=== PATIENT | male | born 1945 | race Caucasian/White ===

== ENCOUNTER 2016-10-25 07:42 | Inpatient (IN) | payer OTHER ==
[~2016-10-25] VITALS: Ht 170.2 cm; Wt 99.0 kg
[2016-10-25 08:40] LABS: EOSINOPHIL (%) 1.1 % (0-5); EOSINOPHIL COUNT 0.1 K/uL (0-0.3); HEMATOCRIT 38.9 % (38.0-50.0); IMMATURE GRANULOCYTE (%) 0.6 % (0.0-0.7); IMMATURE GRANULOCYTE COUNT 0.1 K/uL; INSTRUMENT ABS NEUTROPHIL CT 7.8 K/uL; LYMPHOCYTE COUNT 0.7 K/uL (1.0-2.8); MCHC 32.1 G/DL (30.0-36.0); MCV 93.3 FL (86-99); MEAN PLAT.VOLUME 11.2 uM^3 (9.0-12.4); MONOCYTE (%) 3.5 % (3-12); MONOCYTE COUNT 0.3 K/uL (0-0.8); NEUTROPHIL (%) 86.8 % (45-76); NEUTROPHIL COUNT 7.8 K/uL (1.8-6.4); PLATELET COUNT 120 K/uL (156-360); RBC DIS.WIDTH-CV 13.1 % (11.8-14.6); RBC DIS.WIDTH-SD 44.6 % (39-53); RED BLOOD COUNT 4.17 M/uL (4.00-5.50)
[2016-10-25] MEDS ORDERED: TYLENOL REGULA325 MG PO (10:07)
[2016-10-25 10:58] LABS: ANION GAP 9 MEQ/L (2-14); CHLORIDE 106 MEQ/L (99-109); POTASSIUM 4.2 MEQ/L (3.7-5.4); SAMPLE HEMOLYSIS CHECK 0; SAMPLE ICTERIC CHECK 0; SAMPLE LIPEMIA CHECK 0; SODIUM 141 MEQ/L (136-147)
[2016-10-25 11:04] LABS: GFR ESTIMATE (CALCULATED) 53 mL/min/; GLUCOSE 128 mg/dL (70-99); UREA NITROGEN (BUN) 30 mg/dL (9-23)
[2016-10-25 12:55] LABS: TROP-I INTERPRETATION NEGATIVE; TROPONIN-I 0.15 ng/mL (0.0-0.30)
[2016-10-25 13:02] LABS: HDL CHOLESTEROL 31 MG/DL (Desirable>=40); LDL CHOLESTEROL 97 mg/dL (Desirable<100); NON-HDL CHOLESTEROL 115 mg/dL (Desirable<160); TOTAL CHOLESTEROL 146 mg/dL (Desirable<200); TRIGLYCERIDES 91 MG/DL (Normal: <150)
[2016-10-25 13:55] VITALS: BP 139/75
[2016-10-25 15:20] VITALS: BP 140/71
[2016-10-25 18:59] LABS: TROP-I INTERPRETATION NEGATIVE; TROPONIN-I 0.14 ng/mL (0.0-0.30)
[2016-10-25 19:24] VITALS: BP 143/81
[2016-10-25 23:52] VITALS: BP 167/77
[2016-10-26 01:36] LABS: TROP-I INTERPRETATION NEGATIVE; TROPONIN-I 0.13 ng/mL (0.0-0.30)
[2016-10-26 03:48] VITALS: BP 140/78
[2016-10-26 07:12] LABS: Estimated Average Glucose 134 mg/dL (70-123); HEMOGLOBIN A1c (GLYCOHEMOGLOB) 6.3 % HGB (Below 5.7)
[2016-10-26 07:15] LABS: ANION GAP 11 MEQ/L (2-14); CHLORIDE 108 MEQ/L (99-109); GFR ESTIMATE (CALCULATED) > 59 mL/min/; GLUCOSE 120 mg/dL (70-99); POTASSIUM 4.7 MEQ/L (3.7-5.4); SAMPLE HEMOLYSIS CHECK 0; SAMPLE ICTERIC CHECK 0; SAMPLE LIPEMIA CHECK 0; SODIUM 142 MEQ/L (136-147); UREA NITROGEN (BUN) 26 mg/dL (9-23)
[2016-10-26 07:53] VITALS: BP 139/79
[2016-10-26 16:39] LABS: TROP-I INTERPRETATION NEGATIVE; TROPONIN-I 0.11 ng/mL (0.0-0.30)
[2016-10-26 17:09] VITALS: BP 124/65
[2016-10-26 19:23] VITALS: BP 109/55
[2016-10-26 21:46] LABS: TROP-I INTERPRETATION NEGATIVE
[2016-10-26 23:16] VITALS: BP 124/60
[2016-10-27 02:30] LABS: HEMATOCRIT 33.3 % (38.0-50.0); MCH 29.6 PG (29.0-34.0); MCHC 30.9 G/DL (30.0-36.0); MCV 95.7 FL (86-99); MEAN PLAT.VOLUME 11.1 uM^3 (9.0-12.4); PLATELET COUNT 89 K/uL (156-360); RBC DIS.WIDTH-CV 13.2 % (11.8-14.6); RBC DIS.WIDTH-SD 46.1 % (39-53); RED BLOOD COUNT 3.48 M/uL (4.00-5.50); WHITE BLOOD COUNT 11.4 K/uL (4.1-10.2)
[2016-10-27 02:48] LABS: TROP-I INTERPRETATION NEGATIVE
[2016-10-27 02:48] LABS: CHLORIDE 111 mEq/L (99-109); POTASSIUM 4.6 mEq/L (3.7-5.4); SODIUM 141 mEq/L (136-147)
[2016-10-27 02:49] LABS: GLUCOSE 138 mg/dL (70-99)
[2016-10-27 02:51] LABS: ANION GAP 11 MEQ/L (2-14)
[2016-10-27 02:53] LABS: GFR ESTIMATE (CALCULATED) > 59 mL/min/
[2016-10-27 02:54] LABS: UREA NITROGEN (BUN) 29 mg/dL (9-23)
[2016-10-27 03:48] VITALS: BP 136/69
[2016-10-27 07:00] VITALS: BP 124/70
[2016-10-27 12:02] VITALS: BP 118/68
[2016-10-27 15:20] VITALS: BP 123/60
[2016-10-27 19:36] VITALS: BP 120/63
[2016-10-27 23:03] VITALS: BP 125/66
[2016-10-28 05:16] VITALS: BP 134/72
[2016-10-28 08:15] VITALS: BP 128/63
[2016-10-28 11:32] VITALS: BP 121/56
[2016-10-28 12:43] LABS: HEMATOCRIT 28.6 % (38.0-50.0); MCHC 31.8 G/DL (30.0-36.0); MCV 94.4 FL (86-99); MEAN PLAT.VOLUME 11.9 uM^3 (9.0-12.4); PLATELET COUNT 105 K/uL (156-360); RBC DIS.WIDTH-CV 13.2 % (11.8-14.6); RBC DIS.WIDTH-SD 45.8 % (39-53); RED BLOOD COUNT 3.03 M/uL (4.00-5.50); WHITE BLOOD COUNT 12.6 K/uL (4.1-10.2)
[2016-10-28 16:02] VITALS: BP 127/65
[2016-10-28 19:28] VITALS: BP 130/64
[2016-10-28 23:10] VITALS: BP 125/67
[2016-10-29 06:27] LABS: MCH 31.1 PG (29.0-34.0); MCHC 32.5 G/DL (30.0-36.0); MCV 95.6 FL (86-99); MEAN PLAT.VOLUME 12.4 uM^3 (9.0-12.4); PLATELET COUNT 94 K/uL (156-360); RBC DIS.WIDTH-CV 13.3 % (11.8-14.6); RBC DIS.WIDTH-SD 47.7 % (39-53); RED BLOOD COUNT 2.93 M/uL (4.00-5.50); WHITE BLOOD COUNT 10.5 K/uL (4.1-10.2)
[2016-10-29 06:54] LABS: ANION GAP 12 MEQ/L (2-14); CHLORIDE 106 MEQ/L (99-109); GFR ESTIMATE (CALCULATED) 58 mL/min/; GLUCOSE 107 mg/dL (70-99); POTASSIUM 4.4 MEQ/L (3.7-5.4); SAMPLE HEMOLYSIS CHECK 1; SAMPLE ICTERIC CHECK 0; SAMPLE LIPEMIA CHECK 0; SODIUM 141 MEQ/L (136-147); UREA NITROGEN (BUN) 30 mg/dL (9-23)
[2016-10-29 08:07] VITALS: BP 135/67
[2016-10-29 10:05] LABS: MAGNESIUM 2.4 mg/dl (1.3-2.7)
[2016-10-29 11:56] VITALS: BP 124/59
[2016-10-29 16:00] VITALS: BP 130/58
[2016-10-29 20:48] VITALS: BP 141/65
[2016-10-29 23:56] VITALS: BP 130/64
[2016-10-30 04:36] VITALS: BP 130/69
[2016-10-30 07:10] LABS: EOSINOPHIL (%) 3.2 % (0-5); EOSINOPHIL COUNT 0.3 K/uL (0-0.3); HEMATOCRIT 27.1 % (38.0-50.0); IMMATURE GRANULOCYTE (%) 0.6 % (0.0-0.7); IMMATURE GRANULOCYTE COUNT 0.1 K/uL; INSTRUMENT ABS NEUTROPHIL CT 6.7 K/uL; LYMPHOCYTE COUNT 1.2 K/uL (1.0-2.8); MCH 29.9 PG (29.0-34.0); MCHC 31.7 G/DL (30.0-36.0); MCV 94.1 FL (86-99); MEAN PLAT.VOLUME 11.7 uM^3 (9.0-12.4); MONOCYTE (%) 9.2 % (3-12); MONOCYTE COUNT 0.8 K/uL (0-0.8); NEUTROPHIL (%) 73.7 % (45-76); NEUTROPHIL COUNT 6.7 K/uL (1.8-6.4); PLATELET COUNT 116 K/uL (156-360); RBC DIS.WIDTH-CV 13.2 % (11.8-14.6); RBC DIS.WIDTH-SD 45.7 % (39-53); RED BLOOD COUNT 2.88 M/uL (4.00-5.50); WHITE BLOOD COUNT 9.1 K/uL (4.1-10.2)
[2016-10-30 07:28] LABS: ANION GAP 8 MEQ/L (2-14); CHLORIDE 107 MEQ/L (99-109); GFR ESTIMATE (CALCULATED) > 59 mL/min/; GLUCOSE 103 mg/dL (70-99); POTASSIUM 4.1 MEQ/L (3.7-5.4); SAMPLE HEMOLYSIS CHECK 0; SAMPLE ICTERIC CHECK 0; SAMPLE LIPEMIA CHECK 0; SODIUM 140 MEQ/L (136-147); UREA NITROGEN (BUN) 27 mg/dL (9-23)
[2016-10-30 08:14] VITALS: BP 134/71
[2016-10-30 11:42] VITALS: BP 147/64
[2016-10-30] MEDS ORDERED: LOVENOX40 MG/0.4 SC (11:46)
[2016-10-30] MEDS ORDERED: METOPROLOL SUCC50 MG PO (11:46)
[2016-10-30] MEDS ORDERED: Milk Of Magnesia,MOM PO (11:47)
[2016-10-30] MEDS ORDERED: HYDROCODON-ACE1 EAC7 PO (11:47)
[2016-10-30] MEDS ORDERED: DOCUSATE SODIU100 MG PO (11:47)
[2016-10-30] MEDS ORDERED: KETOROLAC TROME10 MG PO (11:47)
[2016-10-30] MEDS ORDERED: BISAC-EVAC10 MG PR (11:47)
== END 2016-10-30 12:49 | DRG 470 ==
LOC: EME 07:42 → ENRESERV 12:07 → EDOF 12:10 → 3EAST 12:10 → ENRESERV 12:15 → 3EAST 13:26
PROVIDERS: Emergency Medicine; Hospitalist; Internal Medicine; Internal Medicine Cardiovascular Disease; Nurse Practitioner Adult Health; Orthopaedic Surgery
PROC: 0SRS01A Replacement of Left Hip Joint, Femoral Surface with Metal Synthetic Substitute, Uncemented, Open Approach (ICD-10-PCS; principal; 2016-10-26)
DX: S72.042A Displaced fracture of base of neck of left femur, initial encounter for closed fracture (principal); W18.30XA Fall on same level, unspecified, initial encounter; I47.2 Ventricular tachycardia; I35.0 Nonrheumatic aortic (valve) stenosis; D62 Acute posthemorrhagic anemia; E66.9 Obesity, unspecified; Z68.34 Body mass index [BMI] 34.0-34.9, adult; Z87.891 Personal history of nicotine dependence
CPT/HCPCS: 70450; 71010; 73502; 80048; 80061; 81003; 82272; 83036; 83735; 83880; 84100; 84484; 85014; 85018; 85025; 85027; 86850; 86900; 86901; 86920; 88300; 93005; 93306; 94799; 97530 GO; 97530 GP; 99281; 99285; J0330; J0690; J1170; J1644; J1650; J2250; J2270; J2405; J2710; J3010; J7030

== ENCOUNTER 2016-10-29 10:59 | Inpatient (IN) | payer OTHER ==
[~2016-10-29] VITALS: Ht 172.7 cm; Wt 93.4 kg
[~2016-10-29 10:59] MED LIST: TYLENOL REGULA325 MG PO
[2016-10-30] MEDS ORDERED: LOVENOX40 MG/0.4 SC (11:46)
[2016-10-30] MEDS ORDERED: METOPROLOL SUCC50 MG PO (11:46)
[2016-10-30] MEDS ORDERED: HYDROCODON-ACE1 EAC7 PO (11:47)
[2016-10-30] MEDS ORDERED: DOCUSATE SODIU100 MG PO (11:47)
[2016-10-30] MEDS ORDERED: Milk Of Magnesia,MOM PO (11:47)
[2016-10-30] MEDS ORDERED: KETOROLAC TROME10 MG PO (11:47)
[2016-10-30] MEDS ORDERED: BISAC-EVAC10 MG PR (11:47)
[2016-10-30 13:18] VITALS: BP 135/70
[2016-10-30 15:29] VITALS: BP 115/60
[2016-10-31 04:56] VITALS: BP 124/70
[2016-10-31 07:04] LABS: HEMATOCRIT 26.4 % (38.0-50.0); MCH 29.7 PG (29.0-34.0); MCHC 31.4 G/DL (30.0-36.0); MCV 94.6 FL (86-99); MEAN PLAT.VOLUME 11.5 uM^3 (9.0-12.4); PLATELET COUNT 121 K/uL (156-360); RBC DIS.WIDTH-CV 13.2 % (11.8-14.6); RBC DIS.WIDTH-SD 45.9 % (39-53); RED BLOOD COUNT 2.79 M/uL (4.00-5.50); WHITE BLOOD COUNT 8.2 K/uL (4.1-10.2)
[2016-10-31 07:28] LABS: ALKALINE PHOSPHATASE 81 IU/L (3-129); ANION GAP 10 MEQ/L (2-14); CHLORIDE 108 MEQ/L (99-109); GFR ESTIMATE (CALCULATED) > 59 mL/min/; GLUCOSE 106 mg/dL (70-99); POTASSIUM 4.1 MEQ/L (3.7-5.4); SAMPLE HEMOLYSIS CHECK 0; SAMPLE ICTERIC CHECK 0; SAMPLE LIPEMIA CHECK 0; SODIUM 143 MEQ/L (136-147); TOTAL BILIRUBIN 0.5 MG/DL (0.0-1.0); UREA NITROGEN (BUN) 26 mg/dL (9-23)
[2016-10-31 15:08] VITALS: BP 145/67
[2016-11-01 05:22] VITALS: BP 112/67
[2016-11-01 15:06] VITALS: BP 131/60
[2016-11-02 05:35] VITALS: BP 127/58
[2016-11-02 15:02] VITALS: BP 118/63
[2016-11-03 05:27] VITALS: BP 138/66
[2016-11-03 15:32] VITALS: BP 103/65
[2016-11-04 05:48] VITALS: BP 130/61
[2016-11-04 15:19] VITALS: BP 109/55
[2016-11-05 04:03] VITALS: BP 129/66
[2016-11-05 15:14] VITALS: BP 118/58
[2016-11-06 04:52] VITALS: BP 127/54
[2016-11-06 16:20] VITALS: BP 118/56
[2016-11-07 06:06] VITALS: BP 131/61
[2016-11-07 15:29] VITALS: BP 119/57
[2016-11-08 05:44] VITALS: BP 130/63
[2016-11-08 15:40] VITALS: BP 125/59
[2016-11-09 05:13] VITALS: BP 136/63
[2016-11-09 15:11] VITALS: BP 105/57
[2016-11-10 06:09] VITALS: BP 135/61
[2016-11-10 06:53] LABS: HEMATOCRIT 27.1 % (38.0-50.0); MCH 30.4 PG (29.0-34.0); MCHC 30.3 G/DL (30.0-36.0); MEAN PLAT.VOLUME 11.2 uM^3 (9.0-12.4); RBC DIS.WIDTH-CV 14.9 % (11.8-14.6); RBC DIS.WIDTH-SD 52.6 % (39-53); WHITE BLOOD COUNT 7.3 K/uL (4.1-10.2)
[2016-11-10 06:54] LABS: MCV 100.4 FL (86-99); PLATELET COUNT 176 K/uL (156-360)
[2016-11-10 07:07] LABS: ALKALINE PHOSPHATASE 124 IU/L (3-129); ANION GAP 8 MEQ/L (2-14); CHLORIDE 106 MEQ/L (99-109); GFR ESTIMATE (CALCULATED) 58 mL/min/; GLUCOSE 98 mg/dL (70-99); POTASSIUM 4.5 MEQ/L (3.7-5.4); SAMPLE HEMOLYSIS CHECK 0; SAMPLE ICTERIC CHECK 0; SAMPLE LIPEMIA CHECK 0; SODIUM 143 MEQ/L (136-147); TOTAL BILIRUBIN 0.4 MG/DL (0.0-1.0); UREA NITROGEN (BUN) 20 mg/dL (9-23)
[2016-11-10 15:45] VITALS: BP 126/63
[2016-11-11 05:22] VITALS: BP 106/56
[2016-11-11] MEDS ORDERED: THERAGRAN1 TABLET PO (08:41)
[2016-11-11] MEDS ORDERED: LOVENOX40 MG/0.4 SC (08:41)
[2016-11-11] MEDS ORDERED: DOCUSATE SODIU100 MG PO (08:41)
[2016-11-11] MEDS ORDERED: METOPROLOL SUCC50 MG PO (08:41)
[2016-11-11] MEDS ORDERED: ASCORBIC ACID500 M3 PO (08:41)
[2016-11-11] MEDS ORDERED: HYDROCODON-ACE1 EAC7 PO (08:41)
[2016-11-11] MEDS ORDERED: FOLIC ACID1 MG PO (08:41)
[2016-11-11] MEDS ORDERED: XARELTO10 MG PO (08:42)
== END 2016-11-11 12:54 | disposition home health service (06) | DRG 560 ==
LOC: 3WEST 10:59 → ENPENDDIS 11-11 → 3WEST 11-11 12:54
PROVIDERS: Physical Medicine & Rehabilitation Pain Medicine
PROC: F07M0ZZ Range of Motion and Joint Mobility Treatment of Musculoskeletal System - Whole Body (ICD-10-PCS; principal; 2016-10-30)
DX: S72.002D Fracture of unspecified part of neck of left femur, subsequent encounter for closed fracture with routine healing (principal); H91.90 Unspecified hearing loss, unspecified ear; I27.20 Pulmonary hypertension, unspecified; Z87.891 Personal history of nicotine dependence; G89.18 Other acute postprocedural pain; R26.9 Unspecified abnormalities of gait and mobility; I47.1 Supraventricular tachycardia; E83.51 Hypocalcemia; D72.829 Elevated white blood cell count, unspecified; D69.6 Thrombocytopenia, unspecified; D62 Acute posthemorrhagic anemia; L97.929 Non-pressure chronic ulcer of unspecified part of left lower leg with unspecified severity; I08.1 Rheumatic disorders of both mitral and tricuspid valves
CPT/HCPCS: 73502; 80053; 85027; 93971; 97110 GO; 97530 GP; J1650

== ENCOUNTER 2017-02-08 12:26 | Inpatient (IN) | payer OTHER ==
[~2017-02-08] VITALS: Ht 170.2 cm; Wt 81.2 kg
[~2017-02-08 12:26] MED LIST changes: +ASCORBIC ACID500 M3 PO; +BISAC-EVAC10 MG PR; +DOCUSATE SODIU100 MG PO; +FOLIC ACID1 MG PO; +HYDROCODON-ACE1 EAC7 PO; +KETOROLAC TROME10 MG PO; +LOVENOX40 MG/0.4 SC; +METOPROLOL SUCC50 MG PO; +Milk Of Magnesia,MOM PO; +THERAGRAN1 TABLET PO; +XARELTO10 MG PO
[2017-02-08 16:12] LABS: HEMATOCRIT 40.4 % (38.0-50.0); HEMOGLOBIN 12.3 G/DL (12.5-16.6); MCH 30.1 PG (29.0-34.0); MCHC 30.4 G/DL (30.0-36.0); MCV 98.8 FL (86-99); NRBC (%) 0.2 /100 WBC (0-0); PLATELET COUNT 75 K/uL (156-360); RBC DIS.WIDTH-CV 17.6 % (11.8-14.6); RBC DIS.WIDTH-SD 62.4 % (39-53); RED BLOOD COUNT 4.09 M/uL (4.00-5.50); WHITE BLOOD COUNT 11.1 K/uL (4.1-10.2)
[2017-02-08 16:25] LABS: CHLORIDE 105 mEq/L (99-109); POTASSIUM 4.9 mEq/L (3.7-5.4); SODIUM 140 mEq/L (136-147)
[2017-02-08 16:26] LABS: GLUCOSE 119 mg/dL (70-99)
[2017-02-08 16:30] LABS: CREATININE 2.3 mg/dL (0.6-1.3); GFR ESTIMATE (CALCULATED) 30 mL/min/ (58.99-99999)
[2017-02-08 16:31] LABS: UREA NITROGEN (BUN) 55 mg/dL (9-23)
[2017-02-08] MEDS ORDERED: COMPLETE MULTI1 EAC3 PO (20:53)
[2017-02-08] MEDS ORDERED: ASCORBIC ACID500 M1 PO (20:53)
[2017-02-08] MEDS ORDERED: SANTYL30 GM TP (20:54)
[2017-02-08] MEDS ORDERED: BAYER CHEWABLE81 MG PO (20:55)
[2017-02-08 22:07] LABS: ALBUMIN 2.8 g/dL (3.2-4.8)
[2017-02-08 22:12] LABS: TOTAL BILIRUBIN 0.4 mg/dL (0.0-1.0)
[2017-02-08 22:13] LABS: ALKALINE PHOSPHATASE 103 IU/L (3-129)
[2017-02-08 22:16] LABS: ALT (GPT) 16 IU/L (3-49); AST (GOT) 21 IU/L (2-34); DIRECT BILIRUBIN 0.2 mg/dL (0.0-0.3)
[2017-02-08 22:50] LABS: C-REACTIVE PROTEIN 186.8 MG/L (0-10)
[2017-02-09] VITALS (25 sets, daily range): BP systolic 94–169; BP diastolic 46–82
[2017-02-09 06:21] LABS: BASOPHIL (%) 0.2 % (0-1); EOSINOPHIL (%) 0.2 % (0-5); HEMATOCRIT 36.9 % (38.0-50.0); HEMOGLOBIN 10.8 G/DL (12.5-16.6); IMMATURE GRANULOCYTE (%) 0.9 % (0.0-0.7); LYMPHOCYTE (%) 5.6 % (15-42); LYMPHOCYTE COUNT 0.6 K/uL (1.0-2.8); MCH 29.5 PG (29.0-34.0); MCHC 29.3 G/DL (30.0-36.0); MCV 100.8 FL (86-99); MONOCYTE (%) 6.4 % (3-12); MONOCYTE COUNT 0.7 K/uL (0-0.8); NEUTROPHIL (%) 86.7 % (45-76); NEUTROPHIL COUNT 9.2 K/uL (1.8-6.4); NRBC (%) 0.2 /100 WBC (0-0); PLATELET COUNT 76 K/uL (156-360); RBC DIS.WIDTH-CV 17.7 % (11.8-14.6); RBC DIS.WIDTH-SD 65.5 % (39-53); RED BLOOD COUNT 3.66 M/uL (4.00-5.50); WHITE BLOOD COUNT 10.6 K/uL (4.1-10.2)
[2017-02-09 06:46] LABS: CHLORIDE 105 MEQ/L (99-109); CREATININE 2.4 MG/DL (0.6-1.3); GFR ESTIMATE (CALCULATED) 28 mL/min/ (58.99-99999); GLUCOSE 106 mg/dL (70-99); POTASSIUM 5.3 MEQ/L (3.7-5.4); SODIUM 140 MEQ/L (136-147); UREA NITROGEN (BUN) 57 mg/dL (9-23); VANCOMYCIN, TROUGH 13.2 MCG/ML (10-20)
[2017-02-09 10:29] LABS: BASE EXCESS -2.1 mEq/L (-3 to +3); CARBOXY HGB 4.7 % (0-5); METHEMOGLOBIN 1.6 % (0-1.5); PCO2 65 mm Hg (35-45); PO2 64 mm Hg (80-100); SITE LB; pH 7.21 (7.35-7.45)
[2017-02-09 10:30] LABS: O2 FLOW 3.5 L/MIN
[2017-02-09 10:31] LABS: COMMENTS - BLOOD GASES C+; DEVICE NC
[2017-02-09 10:32] LABS: TOTAL RESP RATE 25 resp/min
[2017-02-09 11:02] LABS: BASOPHIL (%) 0.1 % (0-1); EOSINOPHIL (%) 0.2 % (0-5); HEMATOCRIT 37.2 % (38.0-50.0); HEMOGLOBIN 10.8 G/DL (12.5-16.6); IMMATURE GRANULOCYTE (%) 0.8 % (0.0-0.7); LYMPHOCYTE (%) 3.9 % (15-42); LYMPHOCYTE COUNT 0.4 K/uL (1.0-2.8); MCH 29.6 PG (29.0-34.0); MCV 101.9 FL (86-99); MONOCYTE COUNT 0.6 K/uL (0-0.8); NEUTROPHIL COUNT 9.4 K/uL (1.8-6.4); NRBC (%) 0.2 /100 WBC (0-0); RBC DIS.WIDTH-CV 17.8 % (11.8-14.6); RBC DIS.WIDTH-SD 66.1 % (39-53); RED BLOOD COUNT 3.65 M/uL (4.00-5.50); WHITE BLOOD COUNT 10.6 K/uL (4.1-10.2)
[2017-02-09 11:10] LABS: FIBRINOGEN 265 mg/dL (150-450); INTER. NORMALIZED RATIO 1.3
[2017-02-09 11:12] LABS: PTT 26.2 SEC (25-37)
[2017-02-09 11:36] LABS: PLAT.SUFFICIENCY DECREASED; PLATELET COUNT 76 K/uL (156-360)
[2017-02-09 17:50] LABS: TYPE OF FLUID PLEURAL
[2017-02-09 18:16] LABS: APPEARANCE HAZY-YELLOW; BODY FLUID RBC'S 4000 /MM^3 (0-100); BODY FLUID WBC'S 203 /MM^3 (0-500)
[2017-02-09 19:03] LABS: BODY FLUID EOSINOPHILS 0 % (0-25); MONONUCLEAR WBC'S 78 %; POLYNUCLEAR WBC'S 22 % (0-25)
[2017-02-09 19:24] LABS: BODY FLUID GLUCOSE 130 MG/DL; BODY FLUID LDH 72 IU/L
[2017-02-09 19:35] LABS: BODY FLUID PROTEIN < 3.0 G/DL
[2017-02-09 20:48] LABS: BASE EXCESS -5.3 mEq/L (-3 to +3); BICARBONATE 26.1 mEq/L (22-26); CARBOXY HGB 2.3 % (0-5); PO2 54 mm Hg (80-100)
[2017-02-09 20:49] LABS: COMMENTS - BLOOD GASES A+C+; DEVICE NC; O2 FLOW 3 L/MIN; PCO2 88 mm Hg (35-45); SITE RR; pH 7.08 (7.35-7.45)
[2017-02-09 21:44] LABS: APPEARANCE CLOUDY ((CLEAR)); BILIRUBIN NEGATIVE; BLOOD NEGATIVE; COLOR YELLOW ((YELLOW)); GLUCOSE (STRIP) NEGATIVE; KETONES NEGATIVE; LEUKOCYTES NEGATIVE; NITRITE NEGATIVE; PROTEIN (STRIP) 100; SPECIFIC GRAVITY 1.018 (1.000-1.030)
[2017-02-09 21:51] LABS: BACTERIA RARE /HPF; EPITHELIAL CELLS RARE /HPF; HYALINE CASTS 0-5 /LPF; MUCUS TRACE /LPF; RED BLOOD CELLS 0-5 /HPF (0-5); WHITE BLOOD CELLS 0-5 /HPF (0-5)
[2017-02-09 22:48] LABS: BICARBONATE 24.6 mEq/L (22-26); CARBOXY HGB 1.7 % (0-5); COMMENTS - BLOOD GASES C+A+; DEVICE VENT; FI02 100 %; MECHANICAL RATE 22 resp/min; METHEMOGLOBIN 2.1 % (0-1.5); MODE AC; PCO2 56 mm Hg (35-45); PEEP 5 CM/H20; PO2 193 mm Hg (80-100); SITE RR; TIDAL VOLUME 450 ML; TOTAL RESP RATE 22 resp/min; pH 7.25 (7.35-7.45)
[2017-02-10] VITALS (22 sets, daily range): BP systolic 89–133; BP diastolic 41–68
[2017-02-10 01:08] LABS: BASE EXCESS -1.8 mEq/L (-3 to +3); BICARBONATE 23.1 mEq/L (22-26); CARBOXY HGB 1.5 % (0-5); COMMENTS - BLOOD GASES C+A+; DEVICE VENT; FI02 60 %; MECHANICAL RATE 22 resp/min; MODE AC; PCO2 39 mm Hg (35-45); PO2 77 mm Hg (80-100); SITE RR; TIDAL VOLUME 550 ML; TOTAL RESP RATE 22 resp/min; pH 7.38 (7.35-7.45)
[2017-02-10 01:09] LABS: PEEP 5 CM/H20
[2017-02-10 06:21] LABS: BASOPHIL (%) 0 % (0-1); EOSINOPHIL (%) 0.1 % (0-5); HEMATOCRIT 29.3 % (38.0-50.0); HEMOGLOBIN 8.9 G/DL (12.5-16.6); IMMATURE GRANULOCYTE (%) 0.9 % (0.0-0.7); LYMPHOCYTE (%) 4.5 % (15-42); LYMPHOCYTE COUNT 0.4 K/uL (1.0-2.8); MCH 29.9 PG (29.0-34.0); MCHC 30.4 G/DL (30.0-36.0); MCV 98.3 FL (86-99); MONOCYTE (%) 4.6 % (3-12); MONOCYTE COUNT 0.4 K/uL (0-0.8); NEUTROPHIL (%) 89.9 % (45-76); NRBC (%) 0.3 /100 WBC (0-0); RBC DIS.WIDTH-CV 17.3 % (11.8-14.6); RBC DIS.WIDTH-SD 61.9 % (39-53); RED BLOOD COUNT 2.98 M/uL (4.00-5.50); WHITE BLOOD COUNT 7.8 K/uL (4.1-10.2)
[2017-02-10 06:28] LABS: CHLORIDE 106 MEQ/L (99-109); GFR ESTIMATE (CALCULATED) 22 mL/min/ (58.99-99999); GLUCOSE 102 mg/dL (70-99); POTASSIUM 5.6 MEQ/L (3.7-5.4); SODIUM 141 MEQ/L (136-147); UREA NITROGEN (BUN) 70 mg/dL (9-23); URIC ACID 12.2 mg/dL (3.1-9.2)
[2017-02-10 07:28] LABS: PLATELET COUNT 86 K/uL (156-360)
[2017-02-10 13:07] LABS: Heparin Induced Plt Ab Negative (Negative)
[2017-02-10 16:38] LABS: UFH SRA Result Negative (Negative)
[2017-02-11] VITALS (22 sets, daily range): BP systolic 93–126; BP diastolic 48–89
[2017-02-11 05:31] LABS: BASOPHIL (%) 0.1 % (0-1); EOSINOPHIL (%) 0.3 % (0-5); HEMATOCRIT 30.6 % (38.0-50.0); IMMATURE GRANULOCYTE (%) 0.8 % (0.0-0.7); LYMPHOCYTE (%) 6.4 % (15-42); LYMPHOCYTE COUNT 0.5 K/uL (1.0-2.8); MCH 29.1 PG (29.0-34.0); MCHC 29.4 G/DL (30.0-36.0); MONOCYTE (%) 6.8 % (3-12); MONOCYTE COUNT 0.5 K/uL (0-0.8); NEUTROPHIL (%) 85.6 % (45-76); NEUTROPHIL COUNT 6.7 K/uL (1.8-6.4); PLATELET COUNT 89 K/uL (156-360); RBC DIS.WIDTH-CV 17.8 % (11.8-14.6); RBC DIS.WIDTH-SD 64.4 % (39-53); RED BLOOD COUNT 3.09 M/uL (4.00-5.50); WHITE BLOOD COUNT 7.8 K/uL (4.1-10.2)
[2017-02-11 05:53] LABS: CHLORIDE 105 MEQ/L (99-109); CREATININE 3.3 MG/DL (0.6-1.3); GFR ESTIMATE (CALCULATED) 20 mL/min/ (58.99-99999); GLUCOSE 107 mg/dL (70-99); MAGNESIUM 2.7 mg/dl (1.3-2.7); PHOSPHORUS 6.7 mg/dL (2.5-4.9); SODIUM 141 MEQ/L (136-147); UREA NITROGEN (BUN) 74 mg/dL (9-23)
[2017-02-11 05:54] LABS: ALBUMIN 2.7 G/DL (3.2-4.8); ALKALINE PHOSPHATASE 64 IU/L (3-129); ALT (GPT) 8 IU/L (3-49); AST (GOT) 12 IU/L (2-34); CHLORIDE 103 MEQ/L (99-109); CREATININE 3.2 MG/DL (0.6-1.3); GFR ESTIMATE (CALCULATED) 20 mL/min/ (58.99-99999); GLUCOSE 106 mg/dL (70-99); POTASSIUM 4.9 MEQ/L (3.7-5.4); SODIUM 139 MEQ/L (136-147); TOTAL BILIRUBIN 0.5 MG/DL (0.0-1.0); TOTAL PROTEIN 5.3 G/DL (6.4-8.3); UREA NITROGEN (BUN) 73 mg/dL (9-23)
[2017-02-11 09:07] LABS: FOLIC ACID (FOLATE) > 22.0 NG/ML (5.0-22.0)
[2017-02-11 21:55] LABS: HEMATOCRIT 32.8 % (38.0-50.0); HEMOGLOBIN 9.6 G/DL (12.5-16.6); MCH 29.4 PG (29.0-34.0); MCHC 29.3 G/DL (30.0-36.0); MCV 100.6 FL (86-99); PLATELET COUNT 85 K/uL (156-360); RBC DIS.WIDTH-CV 17.8 % (11.8-14.6); RBC DIS.WIDTH-SD 66.3 % (39-53); RED BLOOD COUNT 3.26 M/uL (4.00-5.50); WHITE BLOOD COUNT 7.4 K/uL (4.1-10.2)
[2017-02-11 22:52] LABS: ALBUMIN 3.1 G/DL (3.2-4.8); GLUCOSE 101 mg/dL (70-99); UREA NITROGEN (BUN) 67 mg/dL (9-23)
[2017-02-11 22:57] LABS: CREATININE 2.6 MG/DL (0.6-1.3); GFR ESTIMATE (CALCULATED) 26 mL/min/ (58.99-99999)
[2017-02-11 23:28] LABS: CHLORIDE 108 MEQ/L (99-109); SODIUM 144 MEQ/L (136-147)
[2017-02-12] VITALS (25 sets, daily range): BP systolic 92–121; BP diastolic 34–83
[2017-02-12 06:03] LABS: BASOPHIL (%) 0.3 % (0-1); EOSINOPHIL (%) 1.3 % (0-5); EOSINOPHIL COUNT 0.1 K/uL (0-0.3); HEMATOCRIT 35.1 % (38.0-50.0); HEMOGLOBIN 10.3 G/DL (12.5-16.6); IMMATURE GRANULOCYTE (%) 0.8 % (0.0-0.7); LYMPHOCYTE (%) 7.7 % (15-42); LYMPHOCYTE COUNT 0.6 K/uL (1.0-2.8); MCH 29.7 PG (29.0-34.0); MCHC 29.3 G/DL (30.0-36.0); MCV 101.2 FL (86-99); MONOCYTE (%) 8.6 % (3-12); MONOCYTE COUNT 0.6 K/uL (0-0.8); NEUTROPHIL (%) 81.3 % (45-76); PLATELET COUNT 90 K/uL (156-360); RBC DIS.WIDTH-CV 17.8 % (11.8-14.6); RBC DIS.WIDTH-SD 66.1 % (39-53); RED BLOOD COUNT 3.47 M/uL (4.00-5.50); WHITE BLOOD COUNT 7.4 K/uL (4.1-10.2)
[2017-02-12 06:15] LABS: ALBUMIN 3.3 G/DL (3.2-4.8); CHLORIDE 106 MEQ/L (99-109); MAGNESIUM 2.6 mg/dl (1.3-2.7); POTASSIUM 4.9 MEQ/L (3.7-5.4); SODIUM 142 MEQ/L (136-147)
[2017-02-12 06:22] LABS: GFR ESTIMATE (CALCULATED) 40 mL/min/ (58.99-99999); GLUCOSE 96 mg/dL (70-99); PHOSPHORUS 4.4 mg/dL (2.5-4.9); UREA NITROGEN (BUN) 45 mg/dL (9-23)
[2017-02-12 06:23] LABS: CREATININE 1.8 MG/DL (0.6-1.3)
[2017-02-12 13:43] LABS: ALBUMIN 2.9 G/DL (3.2-4.8); CHLORIDE 106 MEQ/L (99-109); GFR ESTIMATE (CALCULATED) 58 mL/min/ (58.99-99999); GLUCOSE 94 mg/dL (70-99); PHOSPHORUS 3.2 mg/dL (2.5-4.9); POTASSIUM 4.6 MEQ/L (3.7-5.4); SODIUM 140 MEQ/L (136-147); UREA NITROGEN (BUN) 30 mg/dL (9-23)
[2017-02-12 13:44] LABS: CREATININE 1.3 MG/DL (0.6-1.3)
[2017-02-12 18:08] LABS: BASOPHIL (%) 0.3 % (0-1); EOSINOPHIL (%) 1.1 % (0-5); EOSINOPHIL COUNT 0.1 K/uL (0-0.3); HEMATOCRIT 31.8 % (38.0-50.0); HEMOGLOBIN 9.3 G/DL (12.5-16.6); IMMATURE GRANULOCYTE (%) 0.9 % (0.0-0.7); LYMPHOCYTE (%) 5.5 % (15-42); LYMPHOCYTE COUNT 0.4 K/uL (1.0-2.8); MCH 29.2 PG (29.0-34.0); MCHC 29.2 G/DL (30.0-36.0); MONOCYTE (%) 8.4 % (3-12); MONOCYTE COUNT 0.6 K/uL (0-0.8); NEUTROPHIL (%) 83.8 % (45-76); NEUTROPHIL COUNT 6.3 K/uL (1.8-6.4); PLATELET COUNT 83 K/uL (156-360); RBC DIS.WIDTH-CV 17.3 % (11.8-14.6); RBC DIS.WIDTH-SD 64.7 % (39-53); RED BLOOD COUNT 3.18 M/uL (4.00-5.50); WHITE BLOOD COUNT 7.5 K/uL (4.1-10.2)
[2017-02-12 22:55] LABS: ALBUMIN 2.9 G/DL (3.2-4.8); CHLORIDE 105 MEQ/L (99-109); GFR ESTIMATE (CALCULATED) > 59 mL/min/ (58.99-99999); GLUCOSE 110 mg/dL (70-99); PHOSPHORUS 2.5 mg/dL (2.5-4.9); POTASSIUM 4.4 MEQ/L (3.7-5.4); SODIUM 138 MEQ/L (136-147); UREA NITROGEN (BUN) 21 mg/dL (9-23)
[2017-02-13] VITALS (24 sets, daily range): BP systolic 89–122; BP diastolic 46–102
[2017-02-13 05:33] LABS: BASOPHIL (%) 0.1 % (0-1); EOSINOPHIL (%) 1.8 % (0-5); EOSINOPHIL COUNT 0.1 K/uL (0-0.3); HEMATOCRIT 31.1 % (38.0-50.0); HEMOGLOBIN 9.1 G/DL (12.5-16.6); IMMATURE GRANULOCYTE (%) 0.9 % (0.0-0.7); LYMPHOCYTE (%) 5.2 % (15-42); LYMPHOCYTE COUNT 0.4 K/uL (1.0-2.8); MCH 29.3 PG (29.0-34.0); MCHC 29.3 G/DL (30.0-36.0); MONOCYTE (%) 9.4 % (3-12); MONOCYTE COUNT 0.7 K/uL (0-0.8); NEUTROPHIL (%) 82.6 % (45-76); NEUTROPHIL COUNT 6.4 K/uL (1.8-6.4); PLATELET COUNT 77 K/uL (156-360); RBC DIS.WIDTH-CV 17.5 % (11.8-14.6); RBC DIS.WIDTH-SD 64.2 % (39-53); RED BLOOD COUNT 3.11 M/uL (4.00-5.50); WHITE BLOOD COUNT 7.8 K/uL (4.1-10.2)
[2017-02-13 05:44] LABS: ALBUMIN 3.1 G/DL (3.2-4.8); CHLORIDE 106 MEQ/L (99-109); MAGNESIUM 2.4 mg/dl (1.3-2.7); POTASSIUM 4.3 MEQ/L (3.7-5.4); SODIUM 140 MEQ/L (136-147)
[2017-02-13 05:49] LABS: CREATININE 0.9 MG/DL (0.6-1.3); GFR ESTIMATE (CALCULATED) > 59 mL/min/ (58.99-99999); GLUCOSE 116 mg/dL (70-99); PHOSPHORUS 2.3 mg/dL (2.5-4.9); UREA NITROGEN (BUN) 18 mg/dL (9-23)
[2017-02-13 13:42] LABS: ALBUMIN 2.9 G/DL (3.2-4.8); CHLORIDE 105 MEQ/L (99-109); CREATININE 0.9 MG/DL (0.6-1.3); GFR ESTIMATE (CALCULATED) > 59 mL/min/ (58.99-99999); GLUCOSE 146 mg/dL (70-99); PHOSPHORUS 2.1 mg/dL (2.5-4.9); SODIUM 139 MEQ/L (136-147); UREA NITROGEN (BUN) 18 mg/dL (9-23)
[2017-02-13 18:14] LABS: BASOPHIL (%) 0.1 % (0-1); EOSINOPHIL (%) 2.9 % (0-5); EOSINOPHIL COUNT 0.2 K/uL (0-0.3); HEMATOCRIT 30.3 % (38.0-50.0); HEMOGLOBIN 8.9 G/DL (12.5-16.6); LYMPHOCYTE (%) 6.9 % (15-42); LYMPHOCYTE COUNT 0.5 K/uL (1.0-2.8); MCH 29.4 PG (29.0-34.0); MCHC 29.4 G/DL (30.0-36.0); MONOCYTE (%) 8.7 % (3-12); MONOCYTE COUNT 0.6 K/uL (0-0.8); NEUTROPHIL (%) 80.4 % (45-76); NEUTROPHIL COUNT 5.6 K/uL (1.8-6.4); PLATELET COUNT 65 K/uL (156-360); RBC DIS.WIDTH-CV 17.3 % (11.8-14.6); RBC DIS.WIDTH-SD 63.2 % (39-53); RED BLOOD COUNT 3.03 M/uL (4.00-5.50)
[2017-02-13 22:48] LABS: CHLORIDE 107 mEq/L (99-109); POTASSIUM 3.8 mEq/L (3.7-5.4); SODIUM 137 mEq/L (136-147)
[2017-02-13 22:50] LABS: GLUCOSE 136 mg/dL (70-99)
[2017-02-13 22:54] LABS: CREATININE 0.7 mg/dL (0.6-1.3); GFR ESTIMATE (CALCULATED) > 59 mL/min/ (58.99-99999); PHOSPHORUS 1.8 mg/dL (2.5-4.9)
[2017-02-13 22:55] LABS: UREA NITROGEN (BUN) 17 mg/dL (9-23)
[2017-02-14] VITALS (24 sets, daily range): BP systolic 80–106; BP diastolic 39–58
[2017-02-14 06:35] LABS: ALBUMIN 2.8 G/DL (3.2-4.8); CHLORIDE 106 MEQ/L (99-109); CREATININE 0.7 MG/DL (0.6-1.3); GFR ESTIMATE (CALCULATED) > 59 mL/min/ (58.99-99999); GLUCOSE 125 mg/dL (70-99); MAGNESIUM 2.4 mg/dl (1.3-2.7); PHOSPHORUS 1.7 mg/dL (2.5-4.9); POTASSIUM 3.9 MEQ/L (3.7-5.4); SODIUM 140 MEQ/L (136-147); UREA NITROGEN (BUN) 16 mg/dL (9-23)
[2017-02-14 07:03] LABS: BASOPHIL (%) 0.1 % (0-1); EOSINOPHIL (%) 3.1 % (0-5); EOSINOPHIL COUNT 0.2 K/uL (0-0.3); HEMATOCRIT 30.3 % (38.0-50.0); HEMOGLOBIN 8.8 G/DL (12.5-16.6); IMMATURE GRANULOCYTE (%) 0.8 % (0.0-0.7); LYMPHOCYTE (%) 6.3 % (15-42); LYMPHOCYTE COUNT 0.5 K/uL (1.0-2.8); MONOCYTE (%) 8.3 % (3-12); MONOCYTE COUNT 0.6 K/uL (0-0.8); NEUTROPHIL (%) 81.4 % (45-76); NEUTROPHIL COUNT 6.3 K/uL (1.8-6.4); NRBC (%) 0.3 /100 WBC (0-0); PLATELET COUNT 77 K/uL (156-360); RBC DIS.WIDTH-CV 17.3 % (11.8-14.6); RBC DIS.WIDTH-SD 63.1 % (39-53); RED BLOOD COUNT 3.03 M/uL (4.00-5.50); WHITE BLOOD COUNT 7.7 K/uL (4.1-10.2)
[2017-02-14 11:44] LABS: C DIFF TOXIN NEGATIVE (NEGATIVE)
[2017-02-14 13:43] LABS: ALBUMIN 2.8 G/DL (3.2-4.8); CHLORIDE 105 MEQ/L (99-109); CREATININE 0.6 MG/DL (0.6-1.3); GFR ESTIMATE (CALCULATED) > 59 mL/min/ (58.99-99999); GLUCOSE 114 mg/dL (70-99); PHOSPHORUS 2.1 mg/dL (2.5-4.9); POTASSIUM 3.8 MEQ/L (3.7-5.4); SODIUM 139 MEQ/L (136-147); UREA NITROGEN (BUN) 17 mg/dL (9-23)
[2017-02-14 18:16] LABS: BASOPHIL (%) 0.3 % (0-1); EOSINOPHIL COUNT 0.2 K/uL (0-0.3); HEMATOCRIT 31.1 % (38.0-50.0); HEMOGLOBIN 9.1 G/DL (12.5-16.6); IMMATURE GRANULOCYTE (%) 1.2 % (0.0-0.7); LYMPHOCYTE (%) 7.9 % (15-42); LYMPHOCYTE COUNT 0.6 K/uL (1.0-2.8); MCH 29.2 PG (29.0-34.0); MCHC 29.3 G/DL (30.0-36.0); MCV 99.7 FL (86-99); MONOCYTE (%) 6.8 % (3-12); MONOCYTE COUNT 0.5 K/uL (0-0.8); NEUTROPHIL (%) 80.8 % (45-76); NEUTROPHIL COUNT 6.3 K/uL (1.8-6.4); PLATELET COUNT 67 K/uL (156-360); RBC DIS.WIDTH-CV 17.3 % (11.8-14.6); RED BLOOD COUNT 3.12 M/uL (4.00-5.50); WHITE BLOOD COUNT 7.8 K/uL (4.1-10.2)
[2017-02-14 22:27] LABS: ALBUMIN 2.9 G/DL (3.2-4.8); CHLORIDE 105 MEQ/L (99-109); POTASSIUM 3.9 MEQ/L (3.7-5.4); SODIUM 138 MEQ/L (136-147)
[2017-02-14 22:32] LABS: CREATININE 0.6 MG/DL (0.6-1.3); GFR ESTIMATE (CALCULATED) > 59 mL/min/ (58.99-99999); GLUCOSE 111 mg/dL (70-99); PHOSPHORUS 2.1 mg/dL (2.5-4.9); UREA NITROGEN (BUN) 17 mg/dL (9-23)
[2017-02-15] VITALS (10 sets, daily range): BP systolic 69–120; BP diastolic 35–58
[2017-02-15 05:45] LABS: BASOPHIL (%) 0.1 % (0-1); EOSINOPHIL (%) 3.4 % (0-5); EOSINOPHIL COUNT 0.3 K/uL (0-0.3); HEMATOCRIT 30.3 % (38.0-50.0); HEMOGLOBIN 8.9 G/DL (12.5-16.6); IMMATURE GRANULOCYTE (%) 1.7 % (0.0-0.7); LYMPHOCYTE (%) 6.1 % (15-42); LYMPHOCYTE COUNT 0.5 K/uL (1.0-2.8); MCHC 29.4 G/DL (30.0-36.0); MCV 98.7 FL (86-99); MONOCYTE (%) 7.4 % (3-12); MONOCYTE COUNT 0.6 K/uL (0-0.8); NEUTROPHIL (%) 81.3 % (45-76); NEUTROPHIL COUNT 6.5 K/uL (1.8-6.4); NRBC (%) 0.4 /100 WBC (0-0); PLATELET COUNT 75 K/uL (156-360); RBC DIS.WIDTH-CV 17.2 % (11.8-14.6); RBC DIS.WIDTH-SD 62.7 % (39-53); RED BLOOD COUNT 3.07 M/uL (4.00-5.50)
[2017-02-15 06:27] LABS: MAGNESIUM 2.4 mg/dl (1.3-2.7); PHOSPHORUS 1.7 mg/dL (2.5-4.9)
[2017-02-16 00:57] VITALS: BP 66/31
[2017-02-16 06:01] VITALS: BP 79/40
== END 2017-02-16 20:00 | DRG 871 ==
LOC: EME 12:26 → 5EAST 21:07 → EDOF 21:07 → 4WEST 21:07 → ENRESERV 21:09 → 5EAST 23:21 → ENRESERV 02-09 10:09 → 5EAST 02-09 10:38 → ENRESERV 02-09 10:41 → 4WEST 02-09 10:53 → CANRESERV 02-15 16:27 → ENRESERV 02-15 16:27 → 4WEST 02-15 16:36 → ENRESERV 02-15 21:00 → 5SOUTH 02-15 23:25
PROVIDERS: Hospitalist; Internal Medicine Critical Care Medicine; Internal Medicine Nephrology; Physician Assistant Medical; Specialist
DX: A41.9 Sepsis, unspecified organism (principal); J18.9 Pneumonia, unspecified organism; J96.01 Acute respiratory failure with hypoxia; C61 Malignant neoplasm of prostate; N17.0 Acute kidney failure with tubular necrosis; E46 Unspecified protein-calorie malnutrition; L89.312 Pressure ulcer of right buttock, stage 2; J96.02 Acute respiratory failure with hypercapnia; E66.9 Obesity, unspecified; L03.115 Cellulitis of right lower limb; Z68.32 Body mass index [BMI] 32.0-32.9, adult; R18.8 Other ascites; Z66 Do not resuscitate; Z51.5 Encounter for palliative care; N40.0 Benign prostatic hyperplasia without lower urinary tract symptoms; N13.1 Hydronephrosis with ureteral stricture, not elsewhere classified; I50.42 Chronic combined systolic (congestive) and diastolic (congestive) heart failure; I73.9 Peripheral vascular disease, unspecified; J98.11 Atelectasis; N43.3 Hydrocele, unspecified; R64 Cachexia; D69.59 Other secondary thrombocytopenia; R59.0 Localized enlarged lymph nodes; E87.5 Hyperkalemia; I71.2 Thoracic aortic aneurysm, without rupture; L03.116 Cellulitis of left lower limb; N18.3 Chronic kidney disease, stage 3 (moderate); I87.8 Other specified disorders of veins; H91.90 Unspecified hearing loss, unspecified ear; E87.2 Acidosis; I87.2 Venous insufficiency (chronic) (peripheral); N13.8 Other obstructive and reflux uropathy; I42.0 Dilated cardiomyopathy; I31.3 Pericardial effusion (noninflammatory); D64.9 Anemia, unspecified; Z88.0 Allergy status to penicillin; Z96.649 Presence of unspecified artificial hip joint; Z87.891 Personal history of nicotine dependence; Z85.46 Personal history of malignant neoplasm of prostate
CPT/HCPCS: 31500; 36600; 71045; 71250; 73552; 73590; 74176; 76870; 76942; 80048; 80053; 80069; 80076; 80202; 81003; 82550; 82607; 82746; 82803; 82945; 82948; 83010 90; 83605; 83615; 83615 91; 83735; 83880; 84100; 84157; 84550; 85025; 85025 91; 85027; 85049; 85384; 85610; 85651; 85730; 86022 90; 86140; 86850; 86900; 86901; 87040; 87070; 87075; 87086; 87106; 87116; 87205; 87206; 87493; 87641; 88108; 88305; 89051; 93306; 93926; 93930; 93971; 94002; 94003; 94799; 99281; 99285; A6214; C1751; C1752; G0103; J1644; J1650; J2250; J2270; J2543; J2704; J3370; J7030; J7050; J7120; J9217; P9035; P9047; S0028